=== PATIENT | female | born 1955 | race Caucasian/White ===

== ENCOUNTER 2017-04-01 00:50 | Emergency (ER) | payer BC, MEDICAID ==
[2017-04-01] MEDS ORDERED: Ondansetron 4 MG Tab.DIS PO ONE (00:51)
[2017-04-01] MEDS ORDERED: Ondansetron 8 MG Tab.DIS PO ONE (01:35)
[2017-04-01] MEDS ORDERED: Alum Hydroxide/Mag Hydroxide 15 ML, Lidocaine 2% 15 ML PO ONE ×2 (01:36)
--- NOTE | 2017-04-01 01:42 | EDM.PDOC ---
ED HPI GENERAL MEDICAL PROBLEM - General Chief Complaint: Abdominal Pain Stated Complaint: STOMACH PAIN Time Seen by Provider: 04/01/17 00:53 Source of Information: Reports: Patient - History of Present Illness INITIAL COMMENTS - FREE TEXT/NARRATIVE: 61 y.o.w.f s/o gastric bypass surgery, came to the ed this am due to severe nausea since 3 pm yesterday. Last BM was SKIVER BLOCKERS, soft stool nl. No blood. No dizziness, no lightheadedness, no CP or any other acute medical issues. BP 142/ 82 pulse 77 RR 18 Pulse ox 98% on RA Temp 36.8 Onset: Today Onset Date: 03/31/17 Onset Time: 15:00 Duration: Hour(s):, Intermittent Location: Reports: Abdomen (mid upper abdomen) Quality: Reports: Ache, Burning, Dull, Pressure Severity: Moderate Improves with: Reports: Medication, Rest Worsens with: Reports: Eating, Movement Context: Reports: Other (S/P Gastric Bypass, started spontaneously) Associated Symptoms: Reports: Other (nausea) Upper abdomen Pain Score (Numeric/FACES): 8 - Related Data Allergies Allergy/AdvReac Type Severity Reaction Status Date / Time Iodinated Contrast- Oral and Allergy Difficulty Verified 03/17/16 19:27 IV Dye Breathing aspirin AdvReac Bleeding Verified 03/17/16 19:27 ibuprofen AdvReac Bleeding Verified 03/17/16 19:27 Home Meds: Home Meds Acetaminophen [Tylenol Arthritis] 1,300 mg PO TID PRN 09/25/15 [History] Albuterol [Ventolin HFA] 2 puff IH Q4H PRN 03/03/16 [History] Celecoxib [Celecoxib] 200 mg DAILY PRN 04/01/17 [History] Cyclobenzaprine [Flexeril] 10 mg PO DAILY PRN 04/01/17 [History] Ergocalciferol (Vitamin D2) [Vitamin D2] 1 cap MO 04/01/17 [History] Omeprazole 40 mg PO BEDTIME #20 cap.sr 04/01/17 [Rx] Past Medical History HEENT History: Reports: None Cardiovascular History: Reports: None Respiratory History: Reports: Intubation, Previous Other Respiratory History: SINUSITIS, had pneumonia as a child many times Gastrointestinal History: Reports: Bowel Obstruction, Colon Polyp, PUD Other Gastrointestinal History: has had 3 bowel obstructions Genitourinary History: Reports: Renal Calculus Other Genitourinary History: cyst on kidney 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: Reports: 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, Other OB/BYN History: Musculoskeletal History: Reports: Back Pain, Chronic, Osteoarthritis, RA Other Musculoskeletal History: spacer between big toe and next toe on right foot , also next 2 toes have steel rods in Neurological History: Reports: Migraines Psychiatric History: Reports: OCD Endocrine/Metabolic History: Reports: Obesity/BMI 30+, Vitamin D Deficiency Hematologic History: Reports: None Immunologic History: Reports: None Oncologic (Cancer) History: Reports: None Dermatologic History: Reports: None - Infectious Disease History Infectious Disease History: Reports: C-Difficile, Measles, Mumps - Past Surgical History Head Surgeries/Procedures: Reports: None Cardiovascular Surgical History: Reports: None GI Surgical History: Reports: Appendectomy, Bariatric Procedure, Cholecystectomy , Colonoscopy, EGD, Polypectomy Female Surgical History: Reports: Section, Hysterectomy, Salpingo- Oophorectomy Neurological Surgical History: Reports: None Musculoskeletal Surgical History: Reports: Arthroscopic Knee, Carpal Tunnel, Other (See Below) Other Musculoskeletal Surgeries/Procedures:: bilat knee scoped, R carpal tunnel , ganglion cyst removed from R hand & L forearm, R bunionectomy. Oncologic Surgical History: Reports: None Dermatological Surgical History: Reports: None Social & Family History - Family History HEENT: Reports: Cataract, Glaucoma, Hearing Impairment, Impaired Vision Cardiac: Reports: Bypass, Heart Murmur, [place] Respiratory: Reports: Asthma GI: Reports: None : Reports: Renal Calculus OBGYN: Reports: Musculoskeletal: Reports: Fibromyalgia Neurological: Reports: Other (See Below) Other Neurological Family History: bells palsy Psychiatric: Reports: ADHD, Learning Disability Endocrine/Metabolic: Reports: Other (See Below) Other Endocrine/Metabolic Family History: thyroidi problems Hematologic: Reports: None Immunologic: Reports: None Dermatologic: Reports: None Oncologic: Reports: None - Tobacco Use Smoking Status *Q: Former Smoker Years of Tobacco use: 5 Used Tobacco, but Quit: Yes Month Tobacco Last Used: 1999 Second Hand Smoke Exposure: No - Caffeine Use Caffeine Use: Reports: Coffee, Tea - Alcohol Use Days Per Week of Alcohol Use: 0 - Recreational Drug Use Recreational Drug Use: No Drug Use in Last 12 Months: No - Living Situation & Occupation Living situation: Reports: Occupation: Employed ED ROS GENERAL - Review of Systems Review Of Systems: See Below Constitutional: Reports: No Symptoms HEENT: Reports: No Symptoms Respiratory: Reports: No Symptoms Cardiovascular: Reports: No Symptoms Endocrine: Reports: No Symptoms GI/Abdominal: Reports: Abdominal Pain : Reports: No Symptoms Musculoskeletal: Reports: No Symptoms Skin: Reports: No Symptoms Neurological: Reports: No Symptoms Psychiatric: Reports: No Symptoms Hematologic/Lymphatic: Reports: No Symptoms Immunologic: Reports: No Symptoms ED EXAM, GI/ABD - Physical Exam Exam: See Below Exam Limited By: No Limitations General Appearance: Alert, WD/WN, Mild Distress Eyes: Bilateral: Normal Appearance Ears: Normal External Exam Nose: Normal Inspection Throat/Mouth: Normal Inspection Head: Atraumatic, Normocephalic Neck: Normal Inspection Respiratory/Chest: No Respiratory Distress, Lungs Clear Cardiovascular: Normal Peripheral Pulses, Regular Rate, Rhythm GI/Abdominal Exam: Tender (epigastric) (Female) Exam: Deferred Rectal (Female) Exam: Deferred Back Exam: Normal Inspection, Full Range of Motion Extremities: Normal Inspection, Normal Range of Motion, Non-Tender, No Pedal Edema Neurological: Alert, Oriented, CN II-XII Intact, Normal Cognition, Normal Gait Psychiatric: Normal Affect, Normal Mood Skin Exam: Warm, Dry, Intact, Normal Color, No Rash Lymphatic: No Adenopathy Course - Vital Signs Text/Narrative:: 61 y.o.w.f s/o gastric bypass surgery, S/P Gallbladder surgery, came to the ed this am due to severe nausea since 3 pm yesterday. Last BM was SKIVER BLOCKERS, soft stool nl. No blood. No dizziness, no lightheadedness, no CP or any other acute medical issues. BP 142/82 pulse 77 RR 18 Pulse ox 98% on RA Temp 36.8 PE: Dry mucosal membrane, epigastric tenderness Lbas: WBC/HGB/HCT Na, Ka were Nl Her BUN was 19, Cr was 0.8 GFR >60 Impression: Gastritis, Dehydration. Can not r/o food poisoning Tx: NS. Zofran, Protonix Reexam: Improved, pt was voiding before she arrived here in the ed. Plan: D/C with instructions Last Recorded V/S: Last Vital Signs Temp 36.5 C 04/01/17 00:53 Pulse 77 04/01/17 00:53 Resp 18 04/01/17 00:53 BP 142/84 H 04/01/17 00:53 Pulse Ox 100 04/01/17 00:53 - Orders/Labs/Meds Orders: Active Orders 24 hr Category Date Time Status Sodium Chloride 0.9% [Normal Saline] 1,000 ml Med 04/01/17 01:47 Active IV .BOLUS Sodium Chloride 0.9% [Saline Flush] Med 04/01/17 01:48 Active 10 ml FLUSH ASDIRECTED PRN Peripheral IV Insertion Adult [OM.PC] Routine Oth 04/01/17 01:48 Ordered Medication Orders Sodium Chloride (Normal Saline) 1,000 mls @ 999 mls/hr IV .BOLUS ONE Stop: 04/01/17 02:47 Last Admin: 04/01/17 02:00 Dose: 999 mls/hr Sodium Chloride (Saline Flush) 10 ml FLUSH ASDIRECTED PRN PRN Reason: Keep Vein Open Labs: Laboratory Tests 04/01/17 04/01/17 04/01/17 Range/Units 01:10 01:10 01:10 WBC 5.9 (4.5-12.0) X10-3/uL RBC 4.67 (3.23-5.20) x10(6)uL Hgb 12.0 (11.5-15.5) g/dL Hct 36.7 (30.0-51.3) % MCV 78.7 L (80-96) fL MCH 25.6 L (27.7-33.6) pg MCHC 32.6 (32.2-35.4) g/dL RDW 15.1 (11.5-15.5) % Plt Count 262 (125-369) X10(3)uL MPV 8.4 (7.4-10.4) fL Neut % (Auto) 63.1 (46-82) % Lymph % (Auto) 28.3 (13-37) % [place] % (Auto) 6.0 (4-12) % Eos % (Auto) 2 (1.0-5.0) % Baso % (Auto) 1 (0-2) % Neut # (Auto) 3.6 (1.6-8.3) # Lymph # (Auto) 1.7 (0.6-5.0) # [place] # (Auto) 0.4 (0.0-1.3) # Eos # (Auto) 0.1 (0.0-0.8) # Baso # (Auto) 0.0 (0.0-0.2) # Sodium 142 (135-145) mmol/L Potassium 4.1 (3.5-5.3) mmol/L Chloride 105 (100-110) mmol/L Carbon Dioxide 29 (21-32) mmol/L BUN 19 H (7-18) mg/dL Creatinine 0.8 (0.55-1.02) mg/dL Est Cr Clr Drug Dosing 57.14 mL/min Estimated GFR (MDRD) > 60 (>60) BUN/Creatinine Ratio 23.8 H (9-20) Glucose 111 (80-116) mg/dL Calcium 9.5 (8.6-10.2) mg/dL Total Bilirubin 0.3 (0.1-1.3) mg/dL AST 29 H (5-25) IU/L ALT 26 (12-36) U/L Alkaline Phosphatase 106 (56-112) IU/L Total Protein 7.2 (6.0-8.0) g/dL Albumin 3.6 (3.5-5.2) g/dL Globulin 3.6 g/dL Albumin/Globulin Ratio 1.0 Amylase 64 (25-115) U/L Meds: Medications Generic Name Dose Route Start Last Admin Trade Name Freq PRN Reason Stop Dose Admin Sodium Chloride 1,000 mls @ 999 mls/hr 04/01/17 01:47 04/01/17 02:00 Normal Saline IV 04/01/17 02:47 999 mls/hr .BOLUS ONE Administration Sodium Chloride 10 ml 04/01/17 01:48 Saline Flush FLUSH ASDIRECTED PRN Keep Vein Open Discontinued Medications Generic Name Dose Route Start Last Admin Trade Name Freq PRN Reason Stop Dose Admin Al Hydroxide/Mg Hydroxide 15 0 ml 04/01/17 01:36 04/01/17 02:23 ml/ Lidocaine HCl 15 ml PO 04/01/17 01:37 15 ml ONETIME ONE Administration Ondansetron HCl 8 mg 04/01/17 01:35 04/01/17 01:42 Zofran Odt PO 04/01/17 01:36 8 mg ONETIME ONE Administration Ondansetron HCl 8 mg 04/01/17 01:49 04/01/17 02:03 Zofran IVPUSH 04/01/17 01:50 8 mg ONETIME ONE Administration Pantoprazole Sodium 40 mg 04/01/17 02:12 04/01/17 02:23 Protonix Iv IVPUSH 04/01/17 02:13 40 mg ONETIME STA Administration Departure - Departure Time of Disposition: 02:35 Disposition: Home, Self-Care 01 Condition: Good Clinical Impression: Dehydration Gastritis Qualifiers: Gastritis type: unspecified gastritis Chronicity: acute Gastritis bleeding: without bleeding Qualified Code(s): K29.00 - Acute gastritis without bleeding - Discharge Information Prescriptions: Omeprazole 40 mg PO BEDTIME #20 cap.sr Referrals: Kiersten Daniel NP [Primary Care Provider] - Forms: ED Department Discharge, ED Return to Work/School Form Additional Instructions: Please advance diet as tolerated, please take the meds as recommended, please f/ u, come back if your symptom get worse acutely. - My Orders Last 24 Hours: My Active Orders 04/01/17 01:47 Sodium Chloride 0.9% [Normal Saline] 1,000 ml IV .BOLUS 04/01/17 01:48 Sodium Chloride 0.9% [Saline Flush] 10 ml FLUSH ASDIRECTED PRN Peripheral IV Insertion Adult [OM.PC] Routine - Assessment/Plan Last 24 Hours: My Active Orders 04/01/17 01:47 Sodium Chloride 0.9% [Normal Saline] 1,000 ml IV .BOLUS 04/01/17 01:48 Sodium Chloride 0.9% [Saline Flush] 10 ml FLUSH ASDIRECTED PRN Peripheral IV Insertion Adult [OM.PC] Routine
[2017-04-01] MEDS ORDERED: Sodium Chloride 0.9% 1,000 ML IV ONE (01:47)
[2017-04-01] MEDS ORDERED: Sodium Chloride 0.9% 10 ML Syringe FLUSH PRN (01:48)
[2017-04-01] MEDS ORDERED: Ondansetron 4 MG/2 ML SDV IVPUSH ONE (01:49)
[2017-04-01] MEDS ORDERED: Pantoprazole 40 MG Vial IVPUSH STA (02:12)
[2017-04-01 03:19] VITALS: BP 132/79
== END 2017-04-01 03:14 | disposition home or self-care (01) ==
LOC: FB.ED 00:50
DX: K29.00 Acute gastritis without bleeding (principal); E86.0 Dehydration; J45.909 Unspecified asthma, uncomplicated; Z87.891 Personal history of nicotine dependence; Z88.6 Allergy status to analgesic agent; Z91.041 Radiographic dye allergy status; Z79.899 Other long term (current) drug therapy; Z98.84 Bariatric surgery status
CPT/HCPCS: 36415; 80053; 82150; 85025; 96361; 96374; 96375; 99284; A9270; C9113; J2405; J7040; J7030

== ENCOUNTER 2017-11-12 05:36 | Emergency (ER) | payer BC ==
[2017-11-12] MEDS ORDERED: Alum Hydroxide/Mag Hydroxide 15 ML, Lidocaine 2% 15 ML PO ONE ×2 (05:56)
[2017-11-12] MEDS ORDERED: Ondansetron 8 MG Tab.DIS PO ONE (05:56)
--- NOTE | 2017-11-12 05:57 | EDM.PDOC ---
ED HPI GENERAL MEDICAL PROBLEM - General Chief Complaint: Abdominal Pain Stated Complaint: ABD PAIN Time Seen by Provider: 11/12/17 05:45 Source of Information: Reports: Patient History Limitations: Reports: No Limitations - History of Present Illness INITIAL COMMENTS - FREE TEXT/NARRATIVE: 62 y.o.w f came to the ed due to mid upper abdominal pain. Pt underwent gastric bypass surgery and GB surgery 2004. Pt's last BM was at noon yesterday x 1, stool was loose, no blood. Pt was vomiting multiple times since yesterday, dry hiving, not able to keep any food down. Pain is mainly located at her mid upper abdomen. No trauma. Pt had similar symptoms a few years ago. Last CT of her abdomen was a few years ago as well. The vomited material looked like bile. Pt feels nauseated, still. BP 123/81 Pulse 84 RR 16 Pulse ox 97% on RA Temp 36.8 Onset Date: 11/11/17 Onset Time: 19:00 Duration: Hour(s): Location: Reports: Abdomen (epigastric pain) Quality: Reports: Ache, Burning, Dull Severity: Moderate Improves with: Reports: Rest Worsens with: Reports: Movement Context: Reports: Other Associated Symptoms: Reports: Nausea/Vomiting Upper Abdominal Pain Score (Numeric/FACES): 6 - Related Data Allergies Allergy/AdvReac Type Severity Reaction Status Date / Time Iodinated Contrast- Oral and Allergy Difficulty Verified 11/12/17 05:52 IV Dye Breathing aspirin AdvReac Bleeding Verified 11/12/17 05:52 ibuprofen AdvReac Bleeding Verified 11/12/17 05:52 Home Meds: Home Meds Acetaminophen [Tylenol Arthritis] 1,300 mg PO TID PRN 09/25/15 [History] Albuterol [Ventolin HFA] 2 puff IH Q4H PRN 03/03/16 [History] .Bariatric Vitamin Pack 1 pack PO DAILY 11/12/17 [History] Azithromycin [Zithromax] 250 mg PO DAILY 11/12/17 [History] Past Medical History HEENT History: Reports: None Cardiovascular History: Reports: None Respiratory History: Reports: Intubation, Previous Other Respiratory History: SINUSITIS, had pneumonia as a child many times Gastrointestinal History: Reports: Bowel Obstruction, Colon Polyp, PUD Other Gastrointestinal History: has had 3 bowel obstructions Genitourinary History: Reports: Renal Calculus Other Genitourinary History: cyst on kidney [employer] History: Reports: 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, Other [employer]ATE [employer] History: Musculoskeletal History: Reports: Back Pain, Chronic, Osteoarthritis, RA Other Musculoskeletal History: spacer between big toe and next toe on right foot , also next 2 toes have steel rods in Neurological History: Reports: Migraines Psychiatric History: Reports: OCD Endocrine/Metabolic History: Reports: Obesity/BMI 30+, Vitamin D Deficiency Hematologic History: Reports: None Immunologic History: Reports: None Oncologic (Cancer) History: Reports: None Dermatologic History: Reports: None - Infectious Disease History Infectious Disease History: Reports: C-Difficile, Measles, Mumps - Past Surgical History Head Surgeries/Procedures: Reports: None Cardiovascular Surgical History: Reports: None GI Surgical History: Reports: Appendectomy, Bariatric Procedure, Cholecystectomy , Colonoscopy, EGD, Polypectomy Female Surgical History: Reports: Section, Hysterectomy, Salpingo- Oophorectomy Neurological Surgical History: Reports: None Musculoskeletal Surgical History: Reports: Arthroscopic Knee, Carpal Tunnel, Other (See Below) Other Musculoskeletal Surgeries/Procedures:: bilat knee scoped, R carpal tunnel , ganglion cyst removed from R hand & L forearm, R bunionectomy. Oncologic Surgical History: Reports: None Dermatological Surgical History: Reports: None Social & Family History - Family History HEENT: Reports: Cataract, Glaucoma, Hearing Impairment, Impaired Vision Cardiac: Reports: Bypass, Heart Murmur, [place] Respiratory: Reports: Asthma GI: Reports: None : Reports: Renal Calculus OBGYN: Reports: Musculoskeletal: Reports: Fibromyalgia Neurological: Reports: Other (See Below) Other Neurological Family History: bells palsy Psychiatric: Reports: ADHD, Learning Disability Endocrine/Metabolic: Reports: Other (See Below) Other Endocrine/Metabolic Family History: thyroidi problems Hematologic: Reports: None Immunologic: Reports: None Dermatologic: Reports: None Oncologic: Reports: None - Caffeine Use Caffeine Use: Reports: Coffee, Tea - Living Situation & Occupation Living situation: Reports: Occupation: Employed ED ROS GENERAL - Review of Systems Review Of Systems: See Below Constitutional: Reports: No Symptoms HEENT: Reports: No Symptoms Respiratory: Reports: No Symptoms Cardiovascular: Reports: No Symptoms Endocrine: Reports: No Symptoms GI/Abdominal: Reports: Abdominal Pain : Reports: No Symptoms Musculoskeletal: Reports: No Symptoms Skin: Reports: No Symptoms Neurological: Reports: No Symptoms Psychiatric: Reports: No Symptoms Hematologic/Lymphatic: Reports: No Symptoms Immunologic: Reports: No Symptoms ED EXAM, GI/ABD - Physical Exam Exam: See Below Exam Limited By: No Limitations General Appearance: Alert, WD/WN, Moderate Distress Eyes: Bilateral: Normal Appearance Ears: Normal External Exam Nose: Normal Inspection, Normal Mucosa, No Blood Throat/Mouth: Normal Inspection, Normal Lips, Normal Gums, Normal Voice, No Airway Compromise Head: Atraumatic, Normocephalic Neck: Normal Inspection, Supple, Non-Tender, Full Range of Motion Respiratory/Chest: No Respiratory Distress, Lungs Clear, Normal Breath Sounds, No Accessory Muscle Use, Chest Non-Tender Cardiovascular: Normal Peripheral Pulses, Regular Rate, Rhythm, No Edema, No Gallop, No JVD, No Murmur, No Rub GI/Abdominal Exam: Pelvis Stable, Guarding, Tender, Abnormal Bowel Sounds (Female) Exam: Deferred Rectal (Female) Exam: Deferred Back Exam: Normal Inspection, Full Range of Motion Extremities: Normal Inspection, Normal Range of Motion, Non-Tender, No Pedal Edema, Normal Capillary Refill Neurological: Alert, Oriented, CN II-XII Intact, Normal Cognition, Normal Gait, Normal Reflexes, No Motor/Sensory Deficits Psychiatric: Normal Affect, Normal Mood Skin Exam: Warm, Dry, Intact, Normal Color, No Rash Lymphatic: No Adenopathy Course - Vital Signs Text/Narrative:: 62 y.o.w f came to the ed due to mid upper abdominal pain. Pt underwent gastric bypass surgery and GB surgery 2004. Pt's last BM was at noon yesterday x 1, stool was loose, no blood. Pt was vomiting multiple times since yesterday, dry hiving, not able to keep any food down. Pain is mainly located at her mid upper abdomen. No trauma. Pt had similar symptoms a few years ago. Last CT of her abdomen was a few years ago as well. The vomited material looked like bile. Pt feels nauseated, still. BP 123/81 Pulse 84 RR 16 Pulse ox 97% on RA Temp 36.8 PE: 62 y.o.w.f with epigastric pain, S/O Gastric bypass and GB surgery 2004 Labs: WBC 6.5 HGB 11.1 HCT 34.9 NCV 78.4 INR 1.00 BUN 20 Cr 0.8 Glc 110 GFR > 60 Ca 8.5 Na 135 K 3.9 Amylase 78 Imaging: Obstruction of the [place] limb is suspected, surgical consultation is advised Impression: Epigastric pain, Obstruction of the [place] limb is suspected Tx: Zofran, GI Cocktail, NS, Phenergen, Protronix, Vicodin, 9.[address] [place], Surgeon: Sent pt to [place], no surgical nurses available this weekend 9.46 am Consultation: , Hospitalist. [facility]: Accepted the pt for further care Reexam: Improved, no pain meds was given, nausea improved, pt is not vomiting Plan: Transfer pt to [facility] for further care Last Recorded V/S: Last Vital Signs Temp 36.7 C 11/12/17 09:55 Pulse 75 11/12/17 09:55 Resp 18 11/12/17 09:55 BP 126/70 11/12/17 09:55 Pulse Ox 98 11/12/17 09:55 - Orders/Labs/Meds Orders: Active Orders 24 hr Category Date Time Status Abdomen Pelvis wo Cont [CT] Stat Exams 11/12/17 08:27 Taken UA W/MICROSCOPIC [URIN] Stat Lab 11/12/17 10:20 Ordered Labs: Laboratory Tests 11/12/17 11/12/17 11/12/17 Range/Units 06:38 06:38 06:38 WBC 6.5 (4.5-12.0) X10-3/uL RBC 4.46 (3.23-5.20) x10(6)uL Hgb 11.2 L (11.5-15.5) g/dL Hct 34.9 (30.0-51.3) % MCV 78.4 L (80-96) fL MCH 25.1 L (27.7-33.6) pg MCHC 32.0 L (32.2-35.4) g/dL RDW 14.6 (11.5-15.5) % Plt Count 259 (125-369) X10(3)uL MPV 8.5 (7.4-10.4) fL Neut % (Auto) 78.0 (46-82) % Lymph % (Auto) 12.3 L (13-37) % [place] % (Auto) 6.5 (4-12) % Eos % (Auto) 3 (1.0-5.0) % Baso % (Auto) 0 (0-2) % Neut # (Auto) 5.1 (1.6-8.3) # Lymph # (Auto) 0.8 (0.6-5.0) # [place] # (Auto) 0.4 (0.0-1.3) # Eos # (Auto) 0.2 (0.0-0.8) # Baso # (Auto) 0.0 (0.0-0.2) # PT 9.7 (8.7-11.1) INR 1.00 (0.89-1.13) Sodium 135 (135-145) mmol/L Potassium 4.3 (3.5-5.3) mmol/L Chloride 103 (100-110) mmol/L Carbon Dioxide 30 (21-32) mmol/L BUN 20 H (7-18) mg/dL Creatinine 0.8 (0.55-1.02) mg/dL Est Cr Clr Drug Dosing TNP Estimated GFR (MDRD) > 60 (>60) BUN/Creatinine Ratio 25.0 H (9-20) Glucose 108 (80-116) mg/dL Calcium 8.5 L (8.6-10.2) mg/dL Total Bilirubin 0.4 (0.1-1.3) mg/dL Direct Bilirubin 0.10 (0.10-0.20) mg/dL AST 24 D (5-25) IU/L ALT 27 (12-36) U/L Alkaline Phosphatase 109 (56-112) IU/L Total Protein 7.4 (6.0-8.0) g/dL Albumin 3.4 (3.2-4.6) g/dL Amylase 78 (25-115) U/L Urine Color (YELLOW) Urine Appearance (CLEAR) Urine pH (5.0-6.5) Ur Specific [place] (1.010-1.025) Urine Protein (NEGATIVE) mg/dL Urine Glucose (UA) (NEGATIVE) mg/dL Urine Ketones (NEGATIVE) mg/dL Urine Occult Blood (NEGATIVE) Urine Nitrite (NEGATIVE) Urine Bilirubin (NEGATIVE) Urine Urobilinogen (NEGATIVE) mg/dL Ur Leukocyte Esterase (NEGATIVE) Urine RBC (0) Urine WBC (0) Ur Squamous Epith Cells (NS,R,O) Urine Bacteria (NS) Urine Mucus (NS) 11/12/17 Range/Units 10:20 WBC (4.5-12.0) X10-3/uL RBC (3.23-5.20) x10(6)uL Hgb (11.5-15.5) g/dL Hct (30.0-51.3) % MCV (80-96) fL MCH (27.7-33.6) pg MCHC (32.2-35.4) g/dL RDW (11.5-15.5) % Plt Count (125-369) X10(3)uL MPV (7.4-10.4) fL Neut % (Auto) (46-82) % Lymph % (Auto) (13-37) % [place] % (Auto) (4-12) % Eos % (Auto) (1.0-5.0) % Baso % (Auto) (0-2) % Neut # (Auto) (1.6-8.3) # Lymph # (Auto) (0.6-5.0) # [place] # (Auto) (0.0-1.3) # Eos # (Auto) (0.0-0.8) # Baso # (Auto) (0.0-0.2) # PT (8.7-11.1) INR (0.89-1.13) Sodium (135-145) mmol/L Potassium (3.5-5.3) mmol/L Chloride (100-110) mmol/L Carbon Dioxide (21-32) mmol/L BUN (7-18) mg/dL Creatinine (0.55-1.02) mg/dL Est Cr Clr Drug Dosing Estimated GFR (MDRD) (>60) BUN/Creatinine Ratio (9-20) Glucose (80-116) mg/dL Calcium (8.6-10.2) mg/dL Total Bilirubin (0.1-1.3) mg/dL Direct Bilirubin (0.10-0.20) mg/dL AST (5-25) IU/L ALT (12-36) U/L Alkaline Phosphatase (56-112) IU/L Total Protein (6.0-8.0) g/dL Albumin (3.2-4.6) g/dL Amylase (25-115) U/L Urine Color Yellow (YELLOW) Urine Appearance Slightly cloudy (CLEAR) Urine pH 5.0 (5.0-6.5) Ur Specific [place] 1.020 (1.010-1.025) Urine Protein Negative (NEGATIVE) mg/dL Urine Glucose (UA) Normal (NEGATIVE) mg/dL Urine Ketones Negative (NEGATIVE) mg/dL Urine Occult Blood Negative (NEGATIVE) Urine Nitrite Negative (NEGATIVE) Urine Bilirubin Negative (NEGATIVE) Urine Urobilinogen Normal (NEGATIVE) mg/dL Ur Leukocyte Esterase Negative (NEGATIVE) Urine RBC 0-5 (0) Urine WBC 0-5 (0) Ur Squamous Epith Cells Few H (NS,R,O) Urine Bacteria Rare H (NS) Urine Mucus Few H (NS) Meds: Medications Discontinued Medications Generic Name Dose Route Start Last Admin Trade Name Freq PRN Reason Stop Dose Admin Hydrocodone Bitart/Acetaminophen 1 tab 11/12/17 07:17 11/12/17 07:24 [place] 325-5 Mg PO 11/12/17 07:18 1 tab ONETIME ONE Administration Al Hydroxide/Mg Hydroxide 15 0 ml 11/12/17 05:56 11/12/17 06:10 ml/ Lidocaine HCl 15 ml PO 11/12/17 05:57 15 ml ONETIME ONE Administration Sodium Chloride 1,000 mls @ 125 mls/hr 11/12/17 06:30 11/12/17 06:45 Normal Saline IV 125 mls/hr ASDIRECTED EDEL Administration Promethazine HCl 12.5 mg/ 50.5 mls @ 200 mls/hr 11/12/17 06:29 Sodium Chloride IV Q6H PRN Nausea/Vomiting Ondansetron HCl 8 mg 11/12/17 05:56 11/12/17 06:00 Zofran Odt PO 11/12/17 05:57 8 mg ONETIME ONE Administration Pantoprazole Sodium 40 mg 11/12/17 06:29 11/12/17 06:39 Protonix Iv IVPUSH 11/12/17 06:30 40 mg ONETIME ONE Administration Departure - Departure Time of Disposition: 10:00 Disposition: DC/Tfer to Acute Hospital 02 Condition: Fair Clinical Impression: Bowel obstruction Qualifiers: Intestinal obstruction type: unspecified Intestinal obstruction extent: unspecified extent Qualified Code(s): K56.609 - Unspecified intestinal obstruction, unspecified as to partial versus complete obstruction - Discharge Information Referrals: Kiersten Daniel NP [Primary Care Provider] - Forms: ED Department Discharge - My Orders Last 24 Hours: My Active Orders 11/12/17 08:27 Abdomen Pelvis wo Cont [CT] Stat 11/12/17 10:20 UA W/MICROSCOPIC [URIN] Stat - Assessment/Plan Last 24 Hours: My Active Orders 11/12/17 08:27 Abdomen Pelvis wo Cont [CT] Stat 11/12/17 10:20 UA W/MICROSCOPIC [URIN] Stat
[2017-11-12] MEDS ORDERED: Pantoprazole 40 MG Vial IVPUSH ONE (06:29)
[2017-11-12] MEDS ORDERED: Promethazine 12.5 MG in Sodium Chloride 0.9% 50 ML IV PRN (06:29)
[2017-11-12] MEDS ORDERED: Sodium Chloride 0.9% 1,000 ML IV SCH (06:30)
[2017-11-12] MEDS ORDERED: Acetaminophen/HYDROcodone 325-5 MG Tab PO ONE (07:17)
[2017-11-12 10:27] VITALS: BP 126/70
== END 2017-11-12 10:45 ==
LOC: FB.ED 05:36
DX: K56.609 Unspecified intestinal obstruction, unspecified as to partial versus complete obstruction (principal); Z98.84 Bariatric surgery status; Z88.6 Allergy status to analgesic agent; Z91.041 Radiographic dye allergy status; E66.9 Obesity, unspecified
CPT/HCPCS: 36415; 74176; 80048; 80076; 81001; 82150; 85025; 85610; 96361; 96374; 99285; A9270; C9113; J7030

== ENCOUNTER 2018-07-04 06:42 | Day surgery (SDC) | payer MEDICAID ==
[2018-07-04] MEDS ORDERED: Midazolam 1 MG/ML 2 ML SDV IV ONE (06:43)
[2018-07-04] MEDS ORDERED: Propofol 200 MG/20 ML SDV IV ONE (06:43)
[2018-07-04] MEDS ORDERED: Lactated Ringers 1,000 ML IV SCH (06:45)
[2018-07-04] MEDS ORDERED: Sodium Chloride 0.9% 10 ML Syringe FLUSH PRN (06:45)
--- NOTE | 2018-07-04 08:45 | PCM.HPR ---
H & P Addendum review - H & P Addendum Review Date of Original H & P: 06/19/18 Date Reviewed: 07/04/18 Time Reviewed: 08:00 Patient was Examined: No Changes
--- NOTE | 2018-07-04 08:46 | PCM.OPNOTE ---
- General Post-Op/Procedure Note Date of Surgery/Procedure: 07/04/18 Operative Procedure(s): Colonoscopy Findings: Normal Pre Op Diagnosis: Hx Colon Polyps Post-Op Diagnosis: Same Anesthesia Technique: MAC Primary Surgeon: Jin Morales Anesthesia Provider: Janki Richardson Complications: None Condition: Good
[2018-07-04 09:42] VITALS: BP 119/67
--- NOTE | 2018-07-04 13:49 | OR ---
DATE OF OPERATION: 07/04/2018 SURGEON: Jin Morales MD PREOPERATIVE DIAGNOSIS: History of colon polyps. POSTOPERATIVE DIAGNOSIS: Normal colonoscopy. PROCEDURE: Colonoscopy. ANESTHESIA: IV sedation. PROCEDURE IN DETAIL: The patient was brought to the procedure room, where she was placed on her left side and IV sedation administered. Digital rectal exam was performed which was normal. The colonoscope was inserted and advanced through a fairly tortuous colon, requiring pressure on the abdomen. I was able to reach the cecum, which was confirmed by identifying the appendiceal lumen and ileocecal valve. Prep was good and surfaces were well visualized. Upon withdrawing the scope, the ascending, transverse, and descending colon were normal in appearance. The sigmoid colon and rectum were normal. Retroflexion was normal. Air was removed and the scope withdrawn. The patient tolerated the procedure well and returned to Recovery in stable condition. Recommend colon screening again in 5 years. /[id number] KRYSTAL/DESI
== END 2018-07-04 09:42 | disposition home or self-care (01) ==
LOC: FB.SDS 06:42
PROVIDERS: ATTEND Surgery
DX: Z12.11 Encounter for screening for malignant neoplasm of colon (principal); E66.9 Obesity, unspecified; Z68.32 Body mass index [BMI] 32.0-32.9, adult; Z87.891 Personal history of nicotine dependence; Z86.010 Personal history of colon polyps
CPT/HCPCS: 45378; 82962; J2250; J2704; J7120

== ENCOUNTER 2018-08-14 22:36 | Emergency (ER) | payer MEDICAID ==
[2018-08-14 22:59] VITALS: BP 121/81
--- NOTE | 2018-08-14 23:10 | EDM.PDOC ---
ED HPI GENERAL MEDICAL PROBLEM - General Chief Complaint: Abdominal Pain Stated Complaint: LUMP ON STOMACH Time Seen by Provider: 08/14/18 23:00 Source of Information: Reports: Patient - History of Present Illness INITIAL COMMENTS - FREE TEXT/NARRATIVE: pt c/o gen abd pain with a bulging mass near the umbilicus that she noted this evening, pain is steady X 4 hrs, denies any nausea fever or chills with this, report daily BMs. pt report a Hx of multiple abdominal surgeries including hysterectomy appendectomy, cholecystectomy, and a recent bowl obstruction surgery this past october mid-abdomen Pain Score (Numeric/FACES): 7 - Related Data Allergies Allergy/AdvReac Type Severity Reaction Status Date / Time Iodinated Contrast- Oral and Allergy Difficulty Verified 07/04/18 07:00 IV Dye Breathing aspirin AdvReac Bleeding Verified 07/04/18 07:00 ibuprofen AdvReac Bleeding Verified 07/04/18 07:00 Home Meds: Home Meds Acetaminophen [Tylenol Arthritis] 650 mg PO Q8H PRN 09/25/15 [History] Albuterol [Ventolin HFA] 2 puff IH Q4H PRN 03/03/16 [History] .Bariatric Vitamin Pack 1 pack PO DAILY 11/12/17 [History] Cholecalciferol (Vitamin D3) [Vitamin D] 5,000 unit PO DAILY 07/03/18 [History] Fluticasone Propionate [Flonase] 16 gm NS DAILY PRN 07/03/18 [History] Past Medical History HEENT History: Reports: None Cardiovascular History: Reports: None Respiratory History: Reports: Intubation, Previous Other Respiratory History: SINUSITIS, had pneumonia as a child many times Gastrointestinal History: Reports: Bowel Obstruction, Colon Polyp, PUD Other Gastrointestinal History: has had 3 bowel obstructions Genitourinary History: Reports: Renal Calculus Other Genitourinary History: cyst on kidney 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: Reports: 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, Other 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: Musculoskeletal History: Reports: Back Pain, Chronic, Osteoarthritis, RA Other Musculoskeletal History: spacer between big toe and next toe on right foot , also next 2 toes have steel rods in Neurological History: Reports: Migraines Psychiatric History: Reports: OCD Endocrine/Metabolic History: Reports: Obesity/BMI 30+, Vitamin D Deficiency Hematologic History: Reports: None Immunologic History: Reports: None Oncologic (Cancer) History: Reports: None Dermatologic History: Reports: None - Infectious Disease History Infectious Disease History: Reports: C-Difficile, Measles, Mumps - Past Surgical History Dermatological Surgical History: Reports: None Social & Family History - Family History HEENT: Reports: Cataract, Glaucoma, Hearing Impairment, Impaired Vision Cardiac: Reports: Bypass, Heart Murmur, [place] Respiratory: Reports: Asthma GI: Reports: None : Reports: Renal Calculus OBGYN: Reports: Musculoskeletal: Reports: Fibromyalgia Neurological: Reports: Other (See Below) Other Neurological Family History: bells palsy Psychiatric: Reports: ADHD, Learning Disability Endocrine/Metabolic: Reports: Other (See Below) Other Endocrine/Metabolic Family History: thyroidi problems Hematologic: Reports: None Immunologic: Reports: None Dermatologic: Reports: None Oncologic: Reports: None - Caffeine Use Caffeine Use: Reports: Coffee, Tea - Living Situation & Occupation Living situation: Reports: Occupation: Employed ED ROS GENERAL - Review of Systems Review Of Systems: See Below Constitutional: Reports: No Symptoms. Denies: Fever, Chills, Fatigue HEENT: Reports: No Symptoms Respiratory: Reports: No Symptoms Cardiovascular: Reports: No Symptoms GI/Abdominal: Reports: Abdominal Pain. Denies: Anorexia, Black Stool, Constipation, Diarrhea, Nausea, Stool Incontinence, Vomiting Musculoskeletal: Reports: No Symptoms Skin: Reports: No Symptoms ED EXAM, GI/ABD - Physical Exam Exam: See Below Exam Limited By: No Limitations General Appearance: Alert, No Apparent Distress. No: Mild Distress Throat/Mouth: Normal Inspection, Normal Oropharynx Head: Atraumatic Respiratory/Chest: No Respiratory Distress, Lungs Clear Cardiovascular: Normal Peripheral Pulses, Regular Rate, Rhythm GI/Abdominal Exam: Normal Bowel Sounds, Soft, Tender (pt has ventral hernia about 10 cm in diameter, tender to palpation, BS are normal no abd distensssion ) Extremities: Normal Inspection, Normal Range of Motion, Non-Tender Course - Vital Signs Text/Narrative:: pt is minimally symptomatic, no clinical signs of bowel strangulation . 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 pt is ambulatory here and appear comfortable , i do feel she can be safely follow up as out-patient , and i do feel her pain is related to ventral hernia, again i do not suspect at this time strangulation and will have pt follow up with her PCP in the morning for re-check , also would recommend surgery consult then. Last Recorded V/S: Last Vital Signs Temp 35.8 C 08/14/18 22:45 Pulse 82 08/14/18 22:45 Resp 18 08/14/18 22:45 BP 121/81 08/14/18 22:45 Pulse Ox 98 08/14/18 22:45 - Orders/Labs/Meds Orders: Active Orders 24 hr Category Date Time Status Abdomen Pelvis wo Cont [CT] Stat Exams 08/14/18 23:38 Taken LACTIC ACID [CHEM] Stat Lab 08/14/18 23:55 Received LIPASE, SERUM Stat Lab 08/14/18 23:55 Received Labs: Laboratory Tests 08/14/18 08/14/18 08/14/18 Range/Units 23:55 23:55 23:55 WBC 6.6 (4.5-12.0) X10-3/uL RBC 4.83 (3.23-5.20) x10(6)uL Hgb 13.9 (11.5-15.5) g/dL Hct 41.8 (30.0-51.3) % MCV 86.5 (80-96) fL MCH 28.9 (27.7-33.6) pg MCHC 33.4 (32.2-35.4) g/dL RDW 17.3 H (11.5-15.5) % Plt Count 234 (125-369) X10(3)uL MPV 8.3 (7.4-10.4) fL Neut % (Auto) 62.1 (46-82) % Lymph % (Auto) 29.7 (13-37) % Blaine % (Auto) 5.4 (4-12) % Eos % (Auto) 2 (1.0-5.0) % Baso % (Auto) 1 (0-2) % Neut # (Auto) 4.1 (1.6-8.3) # Lymph # (Auto) 1.9 (0.6-5.0) # Blaine # (Auto) 0.4 (0.0-1.3) # Eos # (Auto) 0.2 (0.0-0.8) # Baso # (Auto) 0.0 (0.0-0.2) # Sodium 142 (135-145) mmol/L Potassium 4.3 (3.5-5.3) mmol/L Chloride 104 (100-110) mmol/L Carbon Dioxide 29 (21-32) mmol/L BUN 24 H (7-18) mg/dL Creatinine 0.8 (0.55-1.02) mg/dL Est Cr Clr Drug Dosing 55.73 mL/min Estimated GFR (MDRD) > 60 (>60) BUN/Creatinine Ratio 30.0 H (9-20) Glucose 89 (80-116) mg/dL Calcium 9.1 (8.6-10.2) mg/dL Total Bilirubin 0.3 (0.1-1.3) mg/dL AST 32 H D (5-25) IU/L ALT 57 H D (12-36) U/L Alkaline Phosphatase 105 (56-112) IU/L Total Protein 6.9 (6.0-8.0) g/dL Albumin 3.7 (3.2-4.6) g/dL Globulin 3.2 g/dL Albumin/Globulin Ratio 1.2 Amylase 63 (25-115) U/L Departure - Departure Time of Disposition: 00:30 Disposition: Home, Self-Care 01 Clinical Impression: Ventral hernia - Discharge Information Referrals: Dyana Gonsales, BELT LOOP MACHINE OPERATOR [Primary Care Provider] - Forms: ED Department Discharge - Problem List & Annotations (1) Ventral hernia SNOMED Code(s): 908509910 Code(s): K43.9 - VENTRAL HERNIA WITHOUT OBSTRUCTION OR GANGRENE Status: Acute Current Visit: Yes - My Orders Last 24 Hours: My Active Orders 08/14/18 23:38 Abdomen Pelvis wo Cont [CT] Stat 08/14/18 23:55 LACTIC ACID [CHEM] Stat LIPASE, SERUM Stat - Assessment/Plan Last 24 Hours: My Active Orders 08/14/18 23:38 Abdomen Pelvis wo Cont [CT] Stat 08/14/18 23:55 LACTIC ACID [CHEM] Stat LIPASE, SERUM Stat
== END 2018-08-15 00:45 | disposition home or self-care (01) ==
LOC: FB.ED 22:36
DX: K43.9 Ventral hernia without obstruction or gangrene (principal); Z79.899 Other long term (current) drug therapy; Z91.041 Radiographic dye allergy status; Z88.6 Allergy status to analgesic agent
CPT/HCPCS: 36415; 74176; 80053; 82150; 83605; 83690; 85025; 99284-25

== ENCOUNTER 2018-09-06 10:53 | Day surgery (SDC) | payer MEDICAID ==
[2018-09-06] MEDS ORDERED: HYDROmorphone 2 MG/ML SDV IV ONE (10:54)
[2018-09-06] MEDS ORDERED: Rocuronium 100 MG/10 ML MDV IV ONE (10:54)
[2018-09-06] MEDS ORDERED: Dexamethasone 4 MG/ML 5 ML MDV IVPUSH ONE (10:54)
[2018-09-06] MEDS ORDERED: Propofol 200 MG/20 ML SDV IV ONE (10:54)
[2018-09-06] MEDS ORDERED: Ondansetron 4 MG/2 ML SDV IVPUSH ONE (10:54)
[2018-09-06] MEDS ORDERED: Lactated Ringers 1,000 ML IV ONE (10:54)
[2018-09-06] MEDS ORDERED: Lidocaine 2% 100 MG/5 ML Syringe IVPUSH ONE (10:54)
[2018-09-06] MEDS ORDERED: Midazolam 1 MG/ML 2 ML SDV IV ONE (10:54)
[2018-09-06] MEDS ORDERED: Neostigmine Methylsulfate 10 MG/10 ML MDV IVPUSH ONE (10:54)
[2018-09-06] MEDS ORDERED: fentaNYL 100 MCG/2 ML SDV IV ONE (10:54)
[2018-09-06] MEDS ORDERED: Glycopyrrolate 0.2 MG/ML 5 ML MDV IV ONE (10:54)
[2018-09-06] MEDS ORDERED: Sodium Chloride 0.9% 10 ML Syringe FLUSH PRN (11:00)
[2018-09-06] MEDS ORDERED: Lactated Ringers 1,000 ML IV SCH (11:00)
[2018-09-06] MEDS ORDERED: Acetaminophen 1,000 MG in Premix Bag 1 BAG IV ONE (11:35)
[2018-09-06] MEDS ORDERED: ceFAZolin 1 GM Vial IV ONE (13:00)
[2018-09-06] MEDS ORDERED: ceFAZolin 1 GM in Sodium Chloride 0.9% 50 ML IV ONE (13:00)
--- NOTE | 2018-09-06 13:14 | PCM.HP ---
H&P History of Present Illness - General Date of Service: 09/06/18 Admit Problem/Dx: Admission Diagnosis/Problem Admission Diagnosis/Problem Ventral hernia Source of Information: Patient, Old Records History Limitations: Reports: No Limitations - History of Present Illness Initial Comments - Free Text/Narative: Here for ventral hernia repair - Related Data Allergies/Adverse Reactions: Allergies Allergy/AdvReac Type Severity Reaction Status Date / Time Iodinated Contrast- Oral and Allergy Difficulty Verified 09/05/18 09:01 IV Dye Breathing aspirin AdvReac Bleeding Verified 09/05/18 09:01 ibuprofen AdvReac Bleeding Verified 09/05/18 09:01 Home Medications: Home Meds Acetaminophen [Tylenol Arthritis] 650 mg PO Q8H PRN 09/25/15 [History] Albuterol [Ventolin HFA] 2 puff IH Q4H PRN 03/03/16 [History] .Bariatric Vitamin Pack 1 pack PO DAILY 11/12/17 [History] Cholecalciferol (Vitamin D3) [Vitamin D] 5,000 unit PO DAILY 07/03/18 [History] Fluticasone Propionate [Flonase] 2 spray NS DAILY PRN 07/03/18 [History] Ergocalciferol (Vitamin D2) [Vitamin D2] 50,000 unit PO TID 09/05/18 [History] Folic Acid 1 mg PO DAILY 09/05/18 [History] Multivitamin with Minerals [Multiple Vitamin] 1 tab PO DAILY 09/05/18 [History] Omeprazole 20 mg PO ACBREAKFAST 09/05/18 [History] Past Medical History HEENT History: Reports: Sinusitis Cardiovascular History: Reports: None Respiratory History: Reports: Intubation, Previous Other Respiratory History: SINUSITIS, had pneumonia as a child many times Gastrointestinal History: Reports: Bowel Obstruction, Colon Polyp, PUD Other Gastrointestinal History: has had 3 bowel obstructions Genitourinary History: Reports: Renal Calculus Other Genitourinary History: cyst on kidney 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: Reports: 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, Other OB/BYN History: Musculoskeletal History: Reports: Back Pain, Chronic, Osteoarthritis, RA Other Musculoskeletal History: spacer between big toe and next toe on right foot , also next 2 toes have steel rods in Neurological History: Reports: Migraines Psychiatric History: Reports: OCD Endocrine/Metabolic History: Reports: Obesity/BMI 30+, Vitamin D Deficiency Hematologic History: Reports: None Immunologic History: Reports: None Oncologic (Cancer) History: Reports: None Dermatologic History: Reports: None - Infectious Disease History Infectious Disease History: Reports: C-Difficile, Measles, Mumps - Past Surgical History Head Surgeries/Procedures: Reports: None HEENT Surgical History: Reports: None Cardiovascular Surgical History: Reports: None Respiratory Surgical History: Reports: None GI Surgical History: Reports: Appendectomy, Bariatric Procedure, Cholecystectomy , Colonoscopy, EGD, Polypectomy Other GI Surgeries/Procedures: gastric bypass Female Surgical History: Reports: Section, Hysterectomy, Salpingo- Oophorectomy Endocrine Surgical History: Reports: None Neurological Surgical History: Reports: None Other Neurological Surgeries/Procedures: Surgery planned November 2017. Musculoskeletal Surgical History: Reports: Arthroscopic Knee, Carpal Tunnel, Other (See Below) Other Musculoskeletal Surgeries/Procedures:: bilat knee scoped, R carpal tunnel , ganglion cyst removed from R hand & L forearm, R bunionectomy. Oncologic Surgical History: Reports: None Dermatological Surgical History: Reports: None Social & Family History - Family History Family Medical History: Noncontributory HEENT: Reports: Cataract, Glaucoma, Hearing Impairment, Impaired Vision Cardiac: Reports: Bypass, Heart Murmur, [place] Respiratory: Reports: Asthma GI: Reports: None : Reports: Renal Calculus OBGYN: Reports: Musculoskeletal: Reports: Fibromyalgia Neurological: Reports: Other (See Below) Other Neurological Family History: bells palsy Psychiatric: Reports: ADHD, Learning Disability Endocrine/Metabolic: Reports: Other (See Below) Other Endocrine/Metabolic Family History: thyroidi problems Hematologic: Reports: None Immunologic: Reports: None Dermatologic: Reports: None Oncologic: Reports: None - Tobacco Use Smoking Status *Q: Never Smoker - Caffeine Use Caffeine Use: Reports: Coffee, Tea - Recreational Drug Use Recreational Drug Use: No - Living Situation & Occupation Living situation: Reports: Occupation: Employed H&P Review of Systems - Review of Systems: Review Of Systems: ROS reveals no pertinent complaints other than HPI. Exam - Exam Exam: See Below - Vital Signs Vital Signs: Last Vital Signs Temp 97.8 F 09/06/18 11:20 Pulse 77 09/06/18 11:20 Resp 20 09/06/18 11:20 BP 121/73 09/06/18 11:20 Pulse Ox 96 09/06/18 11:20 Weight: 78.925 kg - Exam General: Alert, Oriented Lungs: Clear to Auscultation, Normal Respiratory Effort Cardiovascular: Regular Rate, Regular Rhythm GI/Abdominal Exam: Soft, Non-Tender, Hernia (reducible) Problem List Initiated/Reviewed/Updated: Yes Orders Last 24hrs: Active Orders 24 hr Category Date Time Status Patient Status [ADT] Routine ADT 09/06/18 11:00 Ordered Patient to Empty Bladder [RC] ASDIRECTED Care 09/06/18 11:00 Active RT Incentive Spirometry [RC] ASDIRECTED Care 09/06/18 11:00 Active Verify Patient Consent Obtain [RC] ASDIRECTED Care 09/06/18 11:00 Active Nothing Per Oral Diet [DIET] Diet 09/06/18 Breakfast Ordered Lactated Ringers [Ringers, Lactated] 1,000 ml Med 09/06/18 11:00 Active IV ASDIRECTED Sodium Chloride 0.9% [Saline Flush] Med 09/06/18 11:00 Active 10 ml FLUSH ASDIRECTED PRN Peripheral IV Insertion Adult [OM.PC] Routine Oth 09/06/18 11:00 Ordered Sequential Compression Device [OM.PC] Routine Oth 09/06/18 11:00 Ordered Medication Orders Lactated Ringer's (Ringers, Lactated) 1,000 mls @ 125 mls/hr IV ASDIRECTED EDEL Last Admin: 09/06/18 12:09 Dose: 125 mls/hr Sodium Chloride (Saline Flush) 10 ml FLUSH ASDIRECTED PRN PRN Reason: Keep Vein Open Assessment/Plan Comment:: A) Ventral Hernia P) ok to proceed with surgery
[2018-09-06] MEDS ORDERED: Bupivacaine 0.25% 30 ML SDV INJECT ONE (13:23)
[2018-09-06] MEDS ORDERED: ceFAZolin 1 GM Vial ONE (13:30)
--- NOTE | 2018-09-06 15:33 | PCM.OPNOTE ---
- General Post-Op/Procedure Note Date of Surgery/Procedure: 09/06/18 Operative Procedure(s): Lap Ventral Henia Repair with mesh Pre Op Diagnosis: Ventral Hernia Post-Op Diagnosis: Same Anesthesia Technique: General ET Tube Primary Surgeon: Jin Morales Anesthesia Provider: Arik Hamilton EBCastro in mLs: 25 Condition: Good Free Text/Narrative:: Intake & Output 09/06/18 09/06/18 09/06/18 06:59 14:59 22:59 Intake Total 0 Balance 0
[2018-09-06] MEDS ORDERED: Morphine 2 MG/ML Syringe IVPUSH PRN (15:34)
[2018-09-06] MEDS: Lactated Ringers 1,000 ML IV SCH ×2 (16:22→20:39)
--- NOTE | 2018-09-06 17:42 | OR ---
DATE OF OPERATION: 09/06/2018 SURGEON: Jin Morales MD PREOPERATIVE DIAGNOSIS: Ventral hernia. POSTOPERATIVE DIAGNOSIS: Ventral hernia. PROCEDURES: 1. Laparoscopic repair of ventral hernia. 2. Extensive adhesiolysis. DENTAL APPLIANCE MECHANIC: Arik Hamilton MD ANESTHESIA: General. DESCRIPTION OF PROCEDURE: The patient was brought to the operating room, where general endotracheal anesthesia was administered. Her abdomen was prepped with ChloraPrep and draped sterilely. An incision was made in the left subcostal region and the Visiport used to enter the peritoneal cavity without difficulty. Pneumoperitoneum was obtained. 5 mm ports were placed in the right upper, right lower, and left lower quadrants. Findings consisted of densely-adhered omentum and a loop of small bowel to the anterior abdominal wall with 3 hernia defects. The larger supraumbilical and epigastric one measured up to 4 inches in diameter , and the smaller umbilical one measured approximately 1 cm in diameter. All of this took a fairly long tedious dissection of approximately 1 hour to free up all the adhesions. A loop of small bowel that was likely from her previous gastric bypass surgery was densely adhered to the anterior abdominal wall. This was taken down carefully and some of the peritoneum taken down also to prevent any serosal damage. The falciform ligament was also taken down to the level of the xyphoid process. Once the anterior abdominal wall was cleared, an 8 inches x 10 inches piece of Ventralight mesh was chosen to give a good coverage at least 2 inches beyond all defects. The mesh was secured in 2 rows using Polysorb tacks providing a tension-free repair. Photographs were taken. The left upper quadrant incision site was closed with #0 Prolene using the port closure device. Pneumoperitoneum was removed. Incisions were closed with #4-0 Vicryl subcuticular sutures. Benzoin and Steri-Strips were placed and Band-Aids applied. The patient tolerated the procedure well. Estimated blood loss 25 mL. She returned to Postanesthesia in a stable condition. /[id number] KRYSTAL/DESI SAMUEL
[2018-09-06] MEDS: Acetaminophen/HYDROcodone 325-5 MG Tab PO PRN (20:33)
[2018-09-07] MEDS: Acetaminophen/HYDROcodone 325-5 MG Tab PO PRN ×3 (02:25→12:10)
[2018-09-07 02:42] VITALS: BP 121/76
[2018-09-07] MEDS: Lactated Ringers 1,000 ML IV SCH (06:35)
--- NOTE | 2018-09-07 14:06 | PCM.SURGPN ---
- General Info Date of Service: 09/07/18 POD#: 1 Functional Status: Reports: Pain Controlled, Tolerating Diet, Ambulating - Review of Systems General: Reports: No Symptoms Pulmonary: Reports: No Symptoms Cardiovascular: Reports: No Symptoms Gastrointestinal: Reports: No Symptoms - Patient Data Vitals - Most Recent: Last Vital Signs Temp 97.7 F 09/07/18 02:10 Pulse 80 09/07/18 02:10 Resp 20 09/07/18 02:10 BP 121/76 09/07/18 02:10 Pulse Ox 97 09/07/18 02:10 Weight - Most Recent: 78.925 kg I&O - Last 24 Hours: Intake & Output 09/06/18 09/07/18 09/07/18 22:59 06:59 14:59 Intake Total 870 1419 Output Total 300 2100 1200 Balance 570 -681 -1200 Med Orders - Current: Current Medications Hydrocodone Bitart/Acetaminophen (Mcdade 325-5 Mg) 1 tab PO Q4H PRN PRN Reason: Pain (mild 1-3) Last Admin: 09/07/18 12:10 Dose: 1 tab Morphine Sulfate (Morphine) 2 mg IVPUSH Q1H PRN PRN Reason: Pain (severe 7-10) Sodium Chloride (Saline Flush) 10 ml FLUSH ASDIRECTED PRN PRN Reason: Keep Vein Open Last Admin: 09/07/18 09:20 Dose: 10 ml Discontinued Medications Bupivacaine HCl (Marcaine 0.25%) 20 ml INJECT .STK-MED ONE Stop: 09/06/18 13:24 Last Admin: 09/06/18 13:23 Dose: 20 ml Cefazolin Sodium (Ancef) 1 gm IV ONETIME ONE Stop: 09/06/18 13:01 Last Admin: 09/06/18 12:47 Dose: 1 gm Cefazolin Sodium (Ancef) 1 gm .XX .STK-MED ONE Stop: 09/06/18 13:31 Last Admin: 09/06/18 13:30 Dose: 1 gm Lactated Ringer's (Ringers, Lactated) 1,000 mls @ 125 mls/hr IV ASDIRECTED EDEL Last Admin: 09/06/18 12:09 Dose: 125 mls/hr Acetaminophen 1,000 mg/ Premix 100 mls @ 400 mls/hr IV NOW ONE Stop: 09/06/18 11:49 Last Admin: 09/06/18 12:10 Dose: 400 mls/hr Lactated Ringer's (Ringers, Lactated) 1,000 mls @ 100 mls/hr IV ASDIRECTED [facility] Last Admin: 09/07/18 06:35 Dose: 100 mls/hr - Exam Wound/Incisions: Healing Well, Dressing Dry and Intact GI/Abdominal Exam: Soft, Non-Tender - Problem List Review Problem List Initiated/Reviewed/Updated: Yes - My Orders Last 24 Hours: Active Orders 24 hr Category Date Time Status May Shower [RC] ASDIRECTED Care 09/07/18 08:00 Active Overnight Pulse Oximetry [RC] Click to Edit Care 09/06/18 16:25 Active Oxygen Therapy [RC] PRN Care 09/06/18 15:34 Active RT Incentive Spirometry [RC] Q2HWA Care 09/06/18 15:34 Active Ready for Discharge [RC] PER UNIT ROUTINE Care 09/07/18 14:00 Ordered Supplemental O2 [Oxygen Therapy] [RC] ASDIRECTED Care 09/06/18 16:44 Active Up With Assistance [RC] ASDIRECTED Care 09/06/18 15:34 Active Vital Signs [RC] PER UNIT ROUTINE Care 09/06/18 15:34 Active Regular Diet [DIET] Diet 09/07/18 Breakfast Ordered Acetaminophen/HYDROcodone [Mcdade 325-5 MG] Med 09/06/18 15:34 Active 1 tab PO Q4H PRN Morphine Med 09/06/18 15:34 Active 2 mg IVPUSH Q1H PRN Convert IV to Saline Lock [OM.PC] Routine Oth 09/07/18 08:36 Ordered Peripheral IV Discontinue [OM.PC] Routine Oth 09/07/18 14:01 Ordered Pulse Oximetry Continuous Monitoring [OM.PC] Routine Oth 09/06/18 16:24 Ordered Medication Orders Hydrocodone Bitart/Acetaminophen (Mcdade 325-5 Mg) 1 tab PO Q4H PRN PRN Reason: Pain (mild 1-3) Last Admin: 09/07/18 12:10 Dose: 1 tab Admin: 09/07/18 06:33 Dose: 1 tab Admin: 09/07/18 02:25 Dose: 1 tab Admin: 09/06/18 20:33 Dose: 1 tab Morphine Sulfate (Morphine) 2 mg IVPUSH Q1H PRN PRN Reason: Pain (severe 7-10) Sodium Chloride (Saline Flush) 10 ml FLUSH ASDIRECTED PRN PRN Reason: Keep Vein Open Last Admin: 09/07/18 09:20 Dose: 10 ml - Assessment Assessment (Free Text/Narrative):: Doing well Ok to discharge
== END 2018-09-07 14:30 | disposition home or self-care (01) ==
LOC: FB.SDS 10:53 → FB.MS 16:50 → FB.SDS 09-07 14:30
PROVIDERS: ATTEND Surgery
DX: K43.2 Incisional hernia without obstruction or gangrene (principal); K66.0 Peritoneal adhesions (postprocedural) (postinfection); K21.9 Gastro-esophageal reflux disease without esophagitis; G43.909 Migraine, unspecified, not intractable, without status migrainosus; G89.29 Other chronic pain; M54.5 Low back pain; M54.32 Sciatica, left side; M47.817 Spondylosis without myelopathy or radiculopathy, lumbosacral region; R73.03 Prediabetes; Z88.6 Allergy status to analgesic agent; Z91.041 Radiographic dye allergy status; Z98.84 Bariatric surgery status; Z87.891 Personal history of nicotine dependence; Z79.51 Long term (current) use of inhaled steroids; Z79.899 Other long term (current) drug therapy
CPT/HCPCS: 94150; A9270-GY; C1713; C1781; J0131; J0690; J1100; J1170; J2001; J2250; J2405; J2704; J2710; J3010; J3490; J7120

== ENCOUNTER 2018-09-15 15:49 | Emergency (ER) | payer MEDICAID ==
--- NOTE | 2018-09-15 17:06 | EDM.PDOC ---
ED HPI GENERAL MEDICAL PROBLEM - General Chief Complaint: Abdominal Pain Stated Complaint: R SIDED PAIN POST SURGERY 9 DAYS Time Seen by Provider: 09/15/18 16:35 Source of Information: Reports: Patient History Limitations: Reports: No Limitations - History of Present Illness INITIAL COMMENTS - FREE TEXT/NARRATIVE: 63-year-old female who reports that at about 10 AM today she was moving a 2 pound jug of laundry detergent over with her right upper extremity and following this she developed pain in her right lateral abdomen that has been worsening with time. She reports the pain is a sharp pain and it is an 8/10. It is worse with palpation and with movement. She also finds it worse when she is trying to lie down and when she takes of breath. There is almost some spasm like pain associated with this. She has had no nausea or vomiting. She's been eating and drinking normally. She has been urinating normally. She just had a ventral hernia repair with mesh that was done laparoscopically by Dr. Morales 9 days ago. She has had twinges of pain in her abdomen diffusely off and on since the surgery but the pain in her right side is new. She has had no lumps or masses that she has palpated. There are no other associated signs or symptoms. There are no other modifying factors. 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 (Earlier today without relief) Right Lower Abdomen Pain Score (Numeric/FACES): 8 - Related Data Allergies Allergy/AdvReac Type Severity Reaction Status Date / Time Iodinated Contrast- Oral and Allergy Difficulty Verified 09/05/18 09:01 IV Dye Breathing aspirin AdvReac Bleeding Verified 09/05/18 09:01 ibuprofen AdvReac Bleeding Verified 09/05/18 09:01 Home Meds: Home Meds Acetaminophen [Tylenol Arthritis] 650 mg PO Q8H PRN 09/25/15 [History] Albuterol [Ventolin HFA] 2 puff IH Q4H PRN 03/03/16 [History] .Bariatric Vitamin Pack 1 pack PO DAILY 11/12/17 [History] Cholecalciferol (Vitamin D3) [Vitamin D] 5,000 unit PO DAILY 07/03/18 [History] Fluticasone Propionate [Flonase] 2 spray NS DAILY PRN 07/03/18 [History] Ergocalciferol (Vitamin D2) [Vitamin D2] 50,000 unit PO TID 09/05/18 [History] Folic Acid 1 mg PO DAILY 09/05/18 [History] Multivitamin with Minerals [Multiple Vitamin] 1 tab PO DAILY 09/05/18 [History] Omeprazole 20 mg PO ACBREAKFAST 09/05/18 [History] Acetaminophen/HYDROcodone [Wallace 325-5 MG] 1 - 2 tab PO Q6H PRN #10 tab [Rx] Past Medical History Other Respiratory History: SINUSITIS, had pneumonia as a child many times Gastrointestinal History: Reports: Bowel Obstruction, Colon Polyp, PUD Other Gastrointestinal History: has had 3 bowel obstructions, lap abd hernia with mesh Genitourinary History: Reports: Renal Calculus Other Genitourinary History: cyst on kidney 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: 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, 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: Musculoskeletal History: Reports: Back Pain, Chronic, Osteoarthritis, RA Other Musculoskeletal History: spacer between big toe and next toe on right foot , also next 2 toes have steel rods in Neurological History: Reports: Migraines Psychiatric History: Reports: Depression, OCD Endocrine/Metabolic History: Reports: Obesity/BMI 30+, Vitamin D Deficiency Hematologic History: Reports: Anemia - Infectious Disease History Infectious Disease History: Reports: C-Difficile, Measles, Mumps - Past Surgical History Head Surgeries/Procedures: Reports: None HEENT Surgical History: Reports: None Cardiovascular Surgical History: Reports: None Respiratory Surgical History: Reports: None GI Surgical History: Reports: Appendectomy, Bariatric Procedure, Cholecystectomy , Colonoscopy, EGD, Hernia Repair/Other, Polypectomy Other GI Surgeries/Procedures: gastric bypass Female Surgical History: Reports: Section, Hysterectomy, Salpingo- Oophorectomy Endocrine Surgical History: Reports: None Neurological Surgical History: Reports: None Other Neurological Surgeries/Procedures: Surgery planned November 2017. Musculoskeletal Surgical History: Reports: Arthroscopic Knee, Carpal Tunnel, Other (See Below) Other Musculoskeletal Surgeries/Procedures:: bilat knee scoped, R carpal tunnel , ganglion cyst removed from R hand & L forearm, R bunionectomy. Oncologic Surgical History: Reports: None Dermatological Surgical History: Reports: None Social & Family History - Family History HEENT: Reports: Cataract, Glaucoma, Hearing Impairment, Impaired Vision Cardiac: Reports: Bypass, Heart Murmur, MS Respiratory: Reports: Asthma GI: Reports: None : Reports: Renal Calculus OBGYN: Reports: Musculoskeletal: Reports: Fibromyalgia Neurological: Reports: Other (See Below) Other Neurological Family History: bells palsy Psychiatric: Reports: ADHD, Learning Disability Endocrine/Metabolic: Reports: Other (See Below) Other Endocrine/Metabolic Family History: thyroidi problems Hematologic: Reports: None Immunologic: Reports: None Dermatologic: Reports: None Oncologic: Reports: None - Tobacco Use Smoking Status *Q: Never Smoker - Caffeine Use Caffeine Use: Reports: None - Alcohol Use Alcohol Use History: No - Recreational Drug Use Recreational Drug Use: No - Living Situation & Occupation Living situation: Reports: Occupation: Employed Social History Comment: Here with her granddaughter ED ROS GENERAL - Review of Systems Review Of Systems: See Below Constitutional: Reports: No Symptoms HEENT: Reports: No Symptoms Respiratory: Reports: No Symptoms Cardiovascular: Reports: No Symptoms GI/Abdominal: Reports: Abdominal Pain : Reports: No Symptoms Musculoskeletal: Reports: No Symptoms Skin: Reports: No Symptoms Neurological: Reports: No Symptoms Hematologic/Lymphatic: Reports: No Symptoms Immunologic: Reports: No Symptoms ED EXAM, GI/ABD - Physical Exam Exam: See Below Exam Limited By: No Limitations General Appearance: Alert, WD/WN Eyes: Bilateral: Normal Appearance, EOMI Ears: Normal External Exam Nose: Normal Inspection, Normal Mucosa, Nasal Drainage Throat/Mouth: Normal Inspection, Normal Oropharynx, No Airway Compromise, Other (Poor dentition) Head: Atraumatic, Normocephalic Neck: Normal Inspection, Supple, Non-Tender, Full Range of Motion Respiratory/Chest: No Respiratory Distress, Lungs Clear, Normal Breath Sounds, No Accessory Muscle Use, Chest Non-Tender Cardiovascular: Normal Peripheral Pulses, Regular Rate, Rhythm, No Edema, No JVD GI/Abdominal Exam: Normal Bowel Sounds, Soft, No Mass, Tender (All right side.) Back Exam: Normal Inspection, Full Range of Motion Extremities: Normal Inspection, Normal Range of Motion, Non-Tender, No Pedal Edema, Normal Capillary Refill Neurological: Alert, Oriented, CN II-XII Intact, Normal Cognition, No Motor/ Sensory Deficits Skin Exam: Warm, Dry, Other (Abdominal wall incisions are healing well without any evidence of hematoma. There is no erythema associated with these.) Lymphatic: No Adenopathy Course - Vital Signs Last Recorded V/S: Last Vital Signs Temp 36.7 C 09/15/18 15:49 Pulse 91 09/15/18 15:49 Resp 18 09/15/18 15:49 BP 122/62 09/15/18 15:49 Pulse Ox 95 09/15/18 15:49 - Orders/Labs/Meds Orders: Active Orders 24 hr Category Date Time Status Acetaminophen/HYDROcodone [Wallace 325-5 MG] Med 09/15/18 18:41 Once 2 tab PO ONETIME ONE Medication Orders Hydrocodone Bitart/Acetaminophen (Wallace 325-5 Mg) 2 tab PO ONETIME ONE Stop: 09/15/18 18:42 Meds: Medications Generic Name Dose Route Start Last Admin Trade Name Freq PRN Reason Stop Dose Admin Hydrocodone Bitart/Acetaminophen 2 tab 09/15/18 18:41 Wallace 325-5 Mg PO 09/15/18 18:42 ONETIME ONE - Re-Assessments/Exams Free Text/Narrative Re-Assessment/Exam: 09/15/18 18:41: Dr. Morales called back after he was out of surgery and he did not feel that any testing including CT scan was indicated at this time. He recommended giving patient some additional pain medication (hydrocodone 5/325) and he would follow the patient up in clinic on the first of his next week. The patient is comfortable with this plan. Departure - Departure Time of Disposition: 18:45 Disposition: Home, Self-Care 01 Condition: Good Clinical Impression: Abdominal wall pain, Postoperative pain - Discharge Information Prescriptions: Acetaminophen/HYDROcodone [Wallace 325-5 MG] 1 - 2 tab PO Q6H PRN #10 tab PRN Reason: Moderate to severe pain Instructions: Abdominal Pain, Adult, [id number] Referrals: Dyana Gonsales COUPLER [Primary Care Provider] - Forms: ED Department Discharge Additional Instructions: I discussed your case with Dr. Morales. He felt that there was no need for testing to be done at this time. He recommended giving you some stronger pain medication. He wants to follow-up with you in his clinic on Tuesday of this next week. Avoid any lifting, bending, pushing or pulling. Rest. Back to the emergency department for worsening pain, unrelenting vomiting, fever or any other concerning sign or symptom. - My Orders Last 24 Hours: My Active Orders 09/15/18 18:41 Acetaminophen/HYDROcodone [Wallace 325-5 MG] 2 tab PO ONETIME ONE - Assessment/Plan Last 24 Hours: My Active Orders 09/15/18 18:41 Acetaminophen/HYDROcodone [Wallace 325-5 MG] 2 tab PO ONETIME ONE
[2018-09-15] MEDS ORDERED: Acetaminophen/HYDROcodone 325-5 MG Tab PO ONE (18:41)
[2018-09-15 19:02] VITALS: BP 117/76
== END 2018-09-15 18:57 | disposition home or self-care (01) ==
LOC: FB.ED 15:49
DX: G89.18 Other acute postprocedural pain (principal); R10.31 Right lower quadrant pain; E66.9 Obesity, unspecified; F32.9 Major depressive disorder, single episode, unspecified; M19.90 Unspecified osteoarthritis, unspecified site; M06.9 Rheumatoid arthritis, unspecified; Z98.84 Bariatric surgery status; Z90.49 Acquired absence of other specified parts of digestive tract; Z90.710 Acquired absence of both cervix and uterus; Z88.6 Allergy status to analgesic agent; Z91.041 Radiographic dye allergy status; Z79.899 Other long term (current) drug therapy; Z86.2 Personal history of diseases of the blood and blood-forming organs and certain disorders involving the immune mechanism
CPT/HCPCS: 99283; A9270

== ENCOUNTER 2019-06-02 11:36 | Emergency (ER) | payer MEDICAID ==
--- NOTE | 2019-06-02 12:28 | EDM.PDOC ---
ED HPI GENERAL MEDICAL PROBLEM - General Chief Complaint: Headache Stated Complaint: HEADACHE,BACK PAIN Time Seen by Provider: 06/02/19 12:10 Source of Information: Reports: Patient History Limitations: Reports: No Limitations - History of Present Illness INITIAL COMMENTS - FREE TEXT/NARRATIVE: sent in from clinic with history of fall yesterday states she was at [employer] toilet and she fell on the toilet floor . Not sure whether floor was slippery was on phone daughter as she fell , so did not pass out or hit her head woke this am with Headache states she did not take any of her am med Onset: Gradual Onset Date: 06/01/19 Onset Time: 18:30 Location: Reports: Head, Back Quality: Reports: Ache Severity: Mild Improves with: Reports: Cold Therapy, Rest Worsens with: Reports: Movement Context: Reports: Activity Associated Symptoms: Denies: Confusion, Weakness Headache Pain Score (Numeric/FACES): 5 - Related Data Allergies Allergy/AdvReac Type Severity Reaction Status Date / Time Iodinated Contrast Media Allergy Difficulty Verified 09/05/18 09:01 Breathing aspirin AdvReac Bleeding Verified 09/05/18 09:01 ibuprofen AdvReac Bleeding Verified 09/05/18 09:01 Home Meds: Home Meds Acetaminophen [Tylenol Arthritis] 650 mg PO Q8H PRN 09/25/15 [History] Albuterol [Ventolin HFA] 2 puff IH Q4H PRN 03/03/16 [History] .Bariatric Vitamin Pack 1 pack PO DAILY 11/12/17 [History] Cholecalciferol (Vitamin D3) [Vitamin D] 5,000 unit PO DAILY 07/03/18 [History] Fluticasone Propionate [Flonase] 2 spray NS DAILY PRN 07/03/18 [History] Ergocalciferol (Vitamin D2) [Vitamin D2] 50,000 unit PO TID 09/05/18 [History] Multivitamin with Minerals [Multiple Vitamin] 1 tab PO DAILY 09/05/18 [History] Omeprazole 20 mg PO ACBREAKFAST PRN 09/05/18 [History] Nabumetone [Relafen] 500 mg PO BID #20 tab 06/02/19 [Rx] tiZANidine [Zanaflex] 4 mg PO DAILY 06/02/19 [History] tiZANidine [Zanaflex] 4 mg PO Q8H #20 tab 06/02/19 [Rx] Past Medical History HEENT History: Reports: Sinusitis Cardiovascular History: Reports: None Respiratory History: Reports: Intubation, Previous Other Respiratory History: SINUSITIS, had pneumonia as a child many times Gastrointestinal History: Reports: Bowel Obstruction, Colon Polyp, PUD Other Gastrointestinal History: has had 3 bowel obstructions, lap abd hernia with mesh Genitourinary History: Reports: Renal Calculus Other Genitourinary History: cyst on kidney 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: 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, 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: Musculoskeletal History: Reports: Back Pain, Chronic, Osteoarthritis, RA Other Musculoskeletal History: spacer between big toe and next toe on right foot , also next 2 toes have steel rods in Neurological History: Reports: Migraines Psychiatric History: Reports: Depression, OCD Endocrine/Metabolic History: Reports: Obesity/BMI 30+, Vitamin D Deficiency Hematologic History: Reports: Anemia Immunologic History: Reports: None Oncologic (Cancer) History: Reports: None Dermatologic History: Reports: None - Infectious Disease History Infectious Disease History: Reports: C-Difficile, Measles, Mumps - Past Surgical History Head Surgeries/Procedures: Reports: None HEENT Surgical History: Reports: None Cardiovascular Surgical History: Reports: None Respiratory Surgical History: Reports: None GI Surgical History: Reports: Appendectomy, Bariatric Procedure, Cholecystectomy , Colonoscopy, EGD, Hernia Repair/Other, Polypectomy Other GI Surgeries/Procedures: gastric bypass Female Surgical History: Reports: Section, Hysterectomy, Salpingo- Oophorectomy Endocrine Surgical History: Reports: None Neurological Surgical History: Reports: None Other Neurological Surgeries/Procedures: Surgery planned November 2017. Musculoskeletal Surgical History: Reports: Arthroscopic Knee, Carpal Tunnel, Other (See Below) Other Musculoskeletal Surgeries/Procedures:: bilat knee scoped, R carpal tunnel , ganglion cyst removed from R hand & L forearm, R bunionectomy. Oncologic Surgical History: Reports: None Dermatological Surgical History: Reports: None Social & Family History - Family History Family Medical History: Noncontributory HEENT: Reports: Cataract, Glaucoma, Hearing Impairment, Impaired Vision Cardiac: Reports: Bypass, Heart Murmur, MD Respiratory: Reports: Asthma GI: Reports: None : Reports: Renal Calculus OBGYN: Reports: Musculoskeletal: Reports: Fibromyalgia Neurological: Reports: Other (See Below) Other Neurological Family History: bells palsy Psychiatric: Reports: ADHD, Learning Disability Endocrine/Metabolic: Reports: Other (See Below) Other Endocrine/Metabolic Family History: thyroidi problems Hematologic: Reports: None Immunologic: Reports: None Dermatologic: Reports: None Oncologic: Reports: None - Tobacco Use Smoking Status *Q: Never Smoker - Caffeine Use Caffeine Use: Reports: Coffee - Recreational Drug Use Recreational Drug Use: No - Living Situation & Occupation Living situation: Reports: Occupation: Employed ED ROS GENERAL - Review of Systems Review Of Systems: See Below Constitutional: Reports: No Symptoms HEENT: Reports: No Symptoms Respiratory: Reports: No Symptoms Cardiovascular: Reports: No Symptoms Endocrine: Reports: No Symptoms GI/Abdominal: Reports: No Symptoms : Reports: No Symptoms Musculoskeletal: Reports: No Symptoms Skin: Reports: No Symptoms Neurological: Reports: No Symptoms - Physical Exam Exam: See Below Exam Limited By: No Limitations General Appearance: Alert, WD/WN, No Apparent Distress Eye Exam: Bilateral Eye: EOMI Ears: Normal External Exam Nose: Normal Inspection Throat/Mouth: Normal Inspection Head Exam: Atraumatic, Normocephalic Neck: Supple, Non-Tender, Full Range of Motion Respiratory/Chest: Lungs Clear Cardiovascular: Regular Rate, Rhythm GI/Abdominal: Soft, Non-Tender Neuro Exam (Abbreviated): Alert, Oriented, CN II-XII Intact, Normal Cognition, Normal Gait, Normal Reflexes, No Motor/Sensory Deficits Back Exam: Muscle Spasm, Paraspinal Tenderness (in the lumbar region ). No: CVA Tenderness (R), CVA Tenderness (L), Decreased Range of Motion Extremities: Normal Inspection, Normal Range of Motion Psychiatric: Normal Affect Skin Exam: Warm Course - Vital Signs Last Recorded V/S: Last Vital Signs Temp 36.4 C 06/02/19 11:51 Pulse 80 06/02/19 11:51 Resp 16 06/02/19 11:51 BP 122/74 06/02/19 11:51 Pulse Ox 97 06/02/19 11:51 - Re-Assessments/Exams Free Text/Narrative Re-Assessment/Exam: 06/02/19 12:32 pt took tylenol for headache and it resolve will use Tizanidine for low back spasm Departure - Departure Time of Disposition: 12:30 Disposition: Home, Self-Care 01 Condition: Fair Clinical Impression: Low back pain, Frontal headache, Lumbar paraspinal muscle spasm - Discharge Information *PRESCRIPTION DRUG MONITORING PROGRAM REVIEWED*: Not Applicable *COPY OF PRESCRIPTION DRUG MONITORING REPORT IN PATIENT DAYAMI: Not Applicable Prescriptions: Nabumetone [Relafen] 500 mg PO BID #20 tab tiZANidine [Zanaflex] 4 mg PO Q8H #20 tab Instructions: Muscle Cramps and Spasms, [id number], General Headache Without Cause, [id number] Referrals: Betsey Baez, RESIDENT HALL DIRECTOR [Primary Care Provider] - Forms: ED Department Discharge Sepsis Event Note - Evaluation Sepsis Screening Result: No Definite Risk - Focused Exam Vital Signs: Vital Signs Temp Pulse Resp BP Pulse Ox 06/02/19 11:51 36.4 C 80 16 122/74 97 Date Exam was Performed: 06/02/19 Time Exam was Performed: 12:30
== END 2019-06-02 12:45 | disposition home or self-care (01) ==
LOC: FB.ED 11:36
CPT/HCPCS: 99283

== ENCOUNTER 2021-05-28 20:41 | Emergency (ER) | payer MEDICARE, OTHER ==
[2021-05-28 22:00] VITALS: PULSE 83
[2021-05-28 22:04] VITALS: BP 143/85
== END 2021-05-28 21:15 | disposition home or self-care (01) ==
LOC: FB.ED 20:41 → SUPCPDRO 20:41 → FB.ED 21:15
DX: S06.0X0A Concussion without loss of consciousness, initial encounter (principal); M19.90 Unspecified osteoarthritis, unspecified site; E66.9 Obesity, unspecified; Z68.30 Body mass index [BMI] 30.0-30.9, adult; Z91.041 Radiographic dye allergy status; Z88.8 Allergy status to other drugs, medicaments and biological substances; Z79.899 Other long term (current) drug therapy; W22.09XA Striking against other stationary object, initial encounter
CPT/HCPCS: 99282; 99283

== ENCOUNTER 2022-11-13 14:47 | Emergency (ER) | payer MEDICARE, MEDICAID ==
[2022-11-13] MEDS ORDERED: Ondansetron 4 MG Tab.DIS PO ONE (14:48)
[2022-11-13] MEDS ORDERED: Acetaminophen/HYDROcodone 325-5 MG Tab PO ONE (14:48)
[2022-11-13] MEDS ORDERED: Sodium Chloride 0.9% 10 ML Syringe FLUSH PRN (15:13)
[2022-11-13] MEDS ORDERED: Sodium Chloride 0.9% 1,000 ML IV SCH (15:30)
[2022-11-13 15:48] LABS: BASOPHILS PERCENT AUTO 0.5 % (0.2-1.5); EOSINOPHILS ABSOLUTE AUTO 0.1 x10-3/uL (0.0-0.8); EOSINOPHILS PERCENT AUTO 1.2 % (0.6-8.1); HEMATOCRIT 44.3 % (34.2-48.2); HEMOGLOBIN 14.6 g/dL (11.4-15.5); LYMPHOCYTES ABSOLUTE AUTO 1.1 x10-3/uL (1.0-4.4); MEAN CORPUSCULAR HEMOGLOBIN 30.5 pg (23.9-33.9); MEAN CORPUSCULAR HGB CONC 32.9 g/dL (31.9-34.8); MEAN CORPUSCULAR VOLUME 92.8 fL (76.7-100.5); MEAN PLATELET VOLUME 8.9 fL (7.1-12.4); MONOCYTES ABSOLUTE AUTO 0.3 x10-3/uL (0.3-1.0); MONOCYTES PERCENT AUTO 4.8 % (4.4-15.7); NEUTROPHILS ABSOLUTE AUTO 5.1 x10-3/uL (1.5-6.3); NEUTROPHILS PERCENT AUTO 76.5 % (30.8-76.2); PLATELET COUNT,PLT 216 x10(3)uL (151-488); RED BLOOD CELL COUNT 4.78 x10(6)uL (3.60-5.20); RED CELL DISTRIBUTION WIDTH 12.9 % (12.3-16.5); WHITE BLOOD CELL COUNT,WBC 6.7 x10-3/uL (3.0-10.3)
[2022-11-13 15:58] LABS: BLOOD UREA NITROGEN,BUN 18 mg/dL (7-18); BUN/CREATININE RATIO 25.7 (9-20); CALCIUM 8.8 mg/dL (8.6-10.2); CARBON DIOXIDE,CO2 28 mmol/L (21-32); CHLORIDE,CL 103 mmol/L (100-110); CREATININE 0.7 mg/dL (0.55-1.02); EST CRCL DRUG DOSING (CG) 60.46 mL/min; ESTIMATED GFR 96 mL/min (>60); GLUCOSE RANDOM 93 mg/dL (80-116); POTASSIUM,K 3.8 mmol/L (3.5-5.3); SODIUM,NA 140 mmol/L (135-145)
[2022-11-13 16:14] LABS: A/G RATIO 1.2; ALANINE AMINOTRANSFERASE,ALT 26 U/L (12-36); ALBUMIN 3.7 g/dL (3.2-4.6); ALKALINE PHOSPHATASE 144 IU/L (56-112); AMYLASE 46 U/L (25-115); ASPARTATE AMNIOTRANSFERASE,AST 25 IU/L (5-25); BILIRUBIN TOTAL 0.6 mg/dL (0.1-1.3); PROTEIN TOTAL,TP 6.7 g/dL (6.0-8.0)
[2022-11-13 16:41] LABS: BILIRUBIN,URINE SMALL (NEGATIVE); GLUCOSE,URINE NORMAL (NORMAL); KETONES,URINE NEGATIVE (NEGATIVE); LEUKOCYTE ESTERASE,URINE NEGATIVE (NEGATIVE); NITRITE,URINE NEGATIVE (NEGATIVE); OCCULT BLOOD,URINE NEGATIVE (NEGATIVE); PROTEIN,URINE NEGATIVE (NEGATIVE); UROBILINOGEN,URINE NORMAL (NEGATIVE)
[2022-11-13 16:43] LABS: LACTIC ACID 0.5 mmol/L (0.4-2.0)
[2022-11-13 16:43] LABS: APPEARANCE,URINE CLEAR (CLEAR); BACTERIA,URINE FEW (NS); COLOR,URINE YELLOW (YELLOW); SQUAMOUS EPITHELIAL CELLS,UR FEW (NS,R,O); WBC,URINE 0-5 (0-5)
[2022-11-13] MEDS ORDERED: Ondansetron 4 MG/2 ML SDV IVPUSH ONE (18:48)
[2022-11-13 20:25] VITALS: BP 138/62; PULSE 71
== END 2022-11-13 19:03 | disposition home or self-care (01) ==
LOC: FB.ED 14:47
DX: N20.0 Calculus of kidney (principal); E66.9 Obesity, unspecified; Z68.36 Body mass index [BMI] 36.0-36.9, adult; Z91.040 Latex allergy status; Z91.041 Radiographic dye allergy status; Z88.8 Allergy status to other drugs, medicaments and biological substances
CPT/HCPCS: 36415; 74176; 80053; 81001; 82150; 83605; 83690; 85025; 96361; 96374; 99283; 99284; A9270; J2405; J3490; J7030; Q0162

== ENCOUNTER 2022-11-15 20:05 | Emergency (ER) | payer MEDICARE, MEDICAID ==
[2022-11-15] MEDS ORDERED: Sodium Chloride 0.9% 10 ML Syringe FLUSH PRN (20:55)
[2022-11-15 21:18] LABS: BASOPHILS PERCENT AUTO 0.4 % (0.2-1.5); EOSINOPHILS ABSOLUTE AUTO 0.1 x10-3/uL (0.0-0.8); EOSINOPHILS PERCENT AUTO 1.6 % (0.6-8.1); HEMATOCRIT 40.7 % (34.2-48.2); HEMOGLOBIN 13.7 g/dL (11.4-15.5); LYMPHOCYTES ABSOLUTE AUTO 0.9 x10-3/uL (1.0-4.4); LYMPHOCYTES PERCENT AUTO 10.5 % (18.4-52.1); MEAN CORPUSCULAR HEMOGLOBIN 31.1 pg (23.9-33.9); MEAN CORPUSCULAR HGB CONC 33.6 g/dL (31.9-34.8); MEAN CORPUSCULAR VOLUME 92.6 fL (76.7-100.5); MEAN PLATELET VOLUME 9.1 fL (7.1-12.4); MONOCYTES ABSOLUTE AUTO 0.4 x10-3/uL (0.3-1.0); MONOCYTES PERCENT AUTO 3.9 % (4.4-15.7); NEUTROPHILS ABSOLUTE AUTO 7.5 x10-3/uL (1.5-6.3); NEUTROPHILS PERCENT AUTO 83.6 % (30.8-76.2); PLATELET COUNT,PLT 189 x10(3)uL (151-488); RED BLOOD CELL COUNT 4.39 x10(6)uL (3.60-5.20); RED CELL DISTRIBUTION WIDTH 12.7 % (12.3-16.5); WHITE BLOOD CELL COUNT,WBC 8.9 x10-3/uL (3.0-10.3)
[2022-11-15] MEDS ORDERED: Ondansetron 4 MG/2 ML SDV IVPUSH ONE (21:18)
[2022-11-15] MEDS ORDERED: Morphine 4 MG/ML VIAL IVPUSH ONE (21:18)
[2022-11-15 21:20] LABS: BLOOD UREA NITROGEN,BUN 14 mg/dL (7-18); BUN/CREATININE RATIO 11.7 (9-20); CALCIUM 8.7 mg/dL (8.6-10.2); CARBON DIOXIDE,CO2 27 mmol/L (21-32); CHLORIDE,CL 108 mmol/L (100-110); CREATININE 1.2 mg/dL (0.55-1.02); EST CRCL DRUG DOSING (CG) 35.27 mL/min; ESTIMATED GFR 50 mL/min (>60); GLUCOSE RANDOM 120 mg/dL (80-116); POTASSIUM,K 4.7 mmol/L (3.5-5.3); SODIUM,NA 142 mmol/L (135-145)
[2022-11-15] MEDS ORDERED: Sodium Chloride 0.9% 1,000 ML IV SCH (21:30)
[2022-11-15 21:31] LABS: A/G RATIO 1.2; ALANINE AMINOTRANSFERASE,ALT 21 U/L (12-36); ALBUMIN 3.6 g/dL (3.2-4.6); ALKALINE PHOSPHATASE 152 IU/L (56-112); AMYLASE 57 U/L (25-115); ASPARTATE AMNIOTRANSFERASE,AST 24 IU/L (5-25); BILIRUBIN TOTAL 0.2 mg/dL (0.1-1.3); PROTEIN TOTAL,TP 6.6 g/dL (6.0-8.0)
[2022-11-15] MEDS ORDERED: metroNIDAZOLE 500 MG Tab PO ONE (23:05)
[2022-11-15] MEDS ORDERED: Ciprofloxacin 500 MG Tab PO ONE (23:05)
[2022-11-16 02:31] VITALS: BP 132/73; PULSE 80
== END 2022-11-15 23:45 | disposition home or self-care (01) ==
LOC: FB.ED 20:05
DX: N20.0 Calculus of kidney (principal); K52.9 Noninfective gastroenteritis and colitis, unspecified; E66.9 Obesity, unspecified; Z68.36 Body mass index [BMI] 36.0-36.9, adult; Z79.899 Other long term (current) drug therapy; Z88.6 Allergy status to analgesic agent; Z88.8 Allergy status to other drugs, medicaments and biological substances; Z91.040 Latex allergy status; Z91.041 Radiographic dye allergy status
CPT/HCPCS: 36415; 74176; 80053; 82150; 83690; 85025; 96361; 96374; 96375; 99284; A9270; J2270; J2405; J7030